=== PATIENT | female | born 1990 | race Caucasian/White ===

== ENCOUNTER 2021-01-05 10:00 | Emergency (ER) | payer OTHER ==
--- NOTE | 2021-01-05 10:25 | EDM.PDOC ---
ED HPI GENERAL MEDICAL PROBLEM - General Stated Complaint: NOT FEELING WELL Time Seen by Provider: 01/05/21 10:00 Source of Information: Reports: Patient History Limitations: Reports: No Limitations - History of Present Illness INITIAL COMMENTS - FREE TEXT/NARRATIVE: Patient presented to the ED because she is not feeling well. She was at work today and she had chills but no fever, she feels there is something stucke in her throat and c/o dyspnea although her oxygen saturation is normal upon triage. Right Neck Pain Score (Numeric/FACES): 2 - Related Data Allergies Allergy/AdvReac Type Severity Reaction Status Date / Time No Known Allergies Allergy Verified 12/17/18 00:30 Home Meds: Home Meds Multivitamin [Multivitamins] 1 tab PO DAILY 01/05/21 [History] Past Medical History Cardiovascular History: Reports: Other (See Below) Other Cardiovascular History: aortic valve regurgitation - Past Surgical History HEENT Surgical History: Reports: Tonsillectomy Other HEENT Surgeries/Procedures: wisdom teeth removal Social & Family History - Caffeine Use Caffeine Use: Reports: None ED ROS GENERAL - Review of Systems Review Of Systems: See Below Constitutional: Reports: No Symptoms HEENT: Reports: No Symptoms Respiratory: Reports: Shortness of Breath Cardiovascular: Reports: No Symptoms Endocrine: Reports: No Symptoms GI/Abdominal: Reports: No Symptoms : Reports: No Symptoms Musculoskeletal: Reports: No Symptoms Skin: Reports: No Symptoms Neurological: Reports: No Symptoms Psychiatric: Reports: No Symptoms ED EXAM, GENERAL - Physical Exam Exam: See Below Exam Limited By: No Limitations General Appearance: Alert, No Apparent Distress Eye Exam: Bilateral Eye: PERRL Ears: Normal External Exam, Normal Canal Nose: Normal Inspection, Normal Mucosa Throat/Mouth: Normal Inspection Head: Atraumatic, Normocephalic Neck: Normal Inspection, Supple, Non-Tender, Full Range of Motion Respiratory/Chest: No Respiratory Distress, Lungs Clear, Normal Breath Sounds Cardiovascular: Normal Peripheral Pulses, Regular Rate, Rhythm, No Edema GI/Abdominal: Normal Bowel Sounds, Soft, Non-Tender, No Organomegaly Back Exam: Normal Inspection, Full Range of Motion Extremities: Normal Inspection, Normal Range of Motion Neurological: Alert, Oriented, CN II-XII Intact, Normal Cognition Course - Vital Signs Text/Narrative:: Lab result was reviewed and discussed with patient Last Recorded V/S: Last Vital Signs Temp 37.0 C 07/12/21 11:30 Pulse 76 01/05/21 11:30 Resp 16 01/05/21 11:30 BP 117/68 01/05/21 11:30 Pulse Ox 98 01/05/21 11:30 - Orders/Labs/Meds Labs: Laboratory Tests 01/05/21 01/05/21 01/05/21 Range/Units 10:30 10:30 10:30 WBC 5.5 (3.0-10.3) x10-3/uL RBC 4.38 (3.60-5.20) x10(6)uL Hgb 14.1 (11.4-15.5) g/dL Hct 42.3 (34.2-48.2) % MCV 96.7 (76.7-100.5) fL MCH 32.2 (23.9-33.9) pg MCHC 33.3 (31.9-34.8) g/dL RDW 12.9 (12.3-16.5) % Plt Count 266 (151-488) x10(3)uL MPV 8.4 (7.1-12.4) fL Neut % (Auto) 58.4 (30.8-76.2) % Lymph % (Auto) 31.4 (18.4-52.1) % Hopkins % (Auto) 8.3 (4.4-15.7) % Eos % (Auto) 1.0 (0.6-8.1) % Baso % (Auto) 0.9 (0.2-1.5) % Neut # (Auto) 3.2 (1.5-6.3) x10-3/uL Lymph # (Auto) 1.7 (1.0-4.4) x10-3/uL Hopkins # (Auto) 0.5 (0.3-1.0) x10-3/uL Eos # (Auto) 0.1 (0.0-0.8) x10-3/uL Baso # (Auto) 0.0 (0.0-0.1) x10-3/uL Sodium 144 (135-145) mmol/L Potassium 3.7 (3.5-5.3) mmol/L Chloride 105 (100-110) mmol/L Carbon Dioxide 31 (21-32) mmol/L BUN 8 (7-18) mg/dL Creatinine 0.7 (0.55-1.02) mg/dL Est Cr Clr Drug Dosing TNP Estimated GFR (MDRD) > 60 (>60) BUN/Creatinine Ratio 11.4 (9-20) Glucose 104 (80-116) mg/dL Calcium 8.8 (8.6-10.2) mg/dL Group A Strep (PCR) Not detected (NOT DETECT) Departure - Departure Time of Disposition: 11:30 Disposition: Home, Self-Care 01 Condition: Good Clinical Impression: URI (upper respiratory infection), Globus sensation - Discharge Information Instructions: Viral Respiratory Infection, [id number] Additional Instructions: Please read discharge instructions on viral URI Increase oral fluid intake Take ibuprofen and tylenol 1000 mg every 8 hours as needed for aches/pain/fever. Follow up as needed Sepsis Event Note (ED) - Focused Exam Vital Signs: Vital Signs Temp Pulse Resp BP Pulse Ox 01/05/21 11:30 37.0 C 76 16 117/68 98 01/05/21 10:00 37.0 C 71 16 125/86 100
== END 2021-01-05 11:30 | disposition home or self-care (01) ==
LOC: FB.ED 10:00
DX: J06.9 Acute upper respiratory infection, unspecified (principal); F45.8 Other somatoform disorders
CPT/HCPCS: 36415; 80048; 85025; 87651-QW; 99284